=== PATIENT | male | born 1990 | race Caucasian/White ===

== ENCOUNTER 2022-12-06 11:20 | Day surgery (SDC) | payer OTHER ==
[~2022-12-06] VITALS: Ht 180.3 cm; Wt 176.9 kg
[2022-12-06] MEDS ORDERED: diphenhydrAMINE 50 MG/ML VIAL ONE (12:48)
[2022-12-06] MEDS ORDERED: fentaNYL citrate 0.05 MG/ML VIAL ONE (12:49)
[2022-12-06] MEDS ORDERED: MIDAZOLAM 2 MG/2 ML VIAL ONE (12:49)
[2022-12-06] MEDS ORDERED: diphenhydrAMINE 50 MG/ML VIAL IVP ONE (14:25)
[2022-12-06] MEDS ORDERED: fentaNYL citrate 0.05 MG/ML VIAL IVP ONE (14:25)
[2022-12-06] MEDS ORDERED: MIDAZOLAM 2 MG/2 ML VIAL IVP ONE (14:25)
== END 2022-12-06 13:45 | disposition home or self-care (01) ==
LOC: MDS 11:20 → MMU 11:25 → MDS 13:45
PROVIDERS: ATTEND Internal Medicine Gastroenterology
DX: K74.60 Unspecified cirrhosis of liver (principal); I85.10 Secondary esophageal varices without bleeding; I10 Essential (primary) hypertension; E78.5 Hyperlipidemia, unspecified; E66.01 Morbid (severe) obesity due to excess calories; F41.9 Anxiety disorder, unspecified; K29.70 Gastritis, unspecified, without bleeding; Z79.899 Other long term (current) drug therapy
CPT/HCPCS: 43239; J1200; J2250; J3010

== ENCOUNTER 2023-02-14 11:06 | Day surgery (SDC) | payer OTHER ==
[~2023-02-14] VITALS: Ht 180.3 cm; Wt 179.2 kg
[2023-02-14] MEDS ORDERED: PROPOFOL 200 MG/20 ML VIAL IV ONE (12:15)
[2023-02-14] MEDS ORDERED: PROPOFOL 1000 MG/100 ML PREMIX 100 ML IV ONE (12:54)
== END 2023-02-14 14:12 | disposition home or self-care (01) ==
LOC: MOR 11:06 → MMU 11:07 → MOR 14:12
PROVIDERS: ATTEND Internal Medicine Gastroenterology
DX: K74.60 Unspecified cirrhosis of liver (principal); I85.10 Secondary esophageal varices without bleeding; I10 Essential (primary) hypertension; E66.01 Morbid (severe) obesity due to excess calories; Z68.43 Body mass index [BMI] 50.0-59.9, adult; Z79.899 Other long term (current) drug therapy
CPT/HCPCS: 43244; J2704

== ENCOUNTER 2023-03-28 10:13 | Day surgery (SDC) | payer OTHER ==
[~2023-03-28] VITALS: Ht 180.3 cm; Wt 179.2 kg
[2023-03-28 11:10] LABS: BASOPHILS % (AUTO) 0.9 % (0.0-2.0); EOSINOPHILS # (AUTO) 0.2 K/uL (0-0.4); EOSINOPHILS % (AUTO) 4.8 % (0.0-4.0); HEMATOCRIT 29.7 % (36-52); HEMOGLOBIN 10.5 g/dL (12.0-18.0); LYMPHOCYTES # (AUTO) 1.1 K/uL (2.0-11.5); MEAN CORPUSCULAR HEMOGLOBIN 34 pg (27-31); MEAN CORPUSCULAR HGB CONC 35 g/dL (33-37); MEAN CORPUSCULAR VOLUME 95.1 fL (80-94); MONOCYTES # (AUTO) 0.2 K/uL (0.8-1.0); MONOCYTES % (AUTO) 5.4 % (1.7-9.3); NEUTROPHILS # (AUTO) 2.7 K/uL (1.8-7.7); NEUTROPHILS % (AUTO) 62.9 % (42.2-75.2); PLATELET COUNT (AUTO) 51 K/uL (140-450); RED BLOOD CELL COUNT(AUTO) 3.12 MIL/uL (4.20-6.10); RED CELL DISTRIBUTION WIDTH 16.2 % (11.6-13.7); WHITE BLOOD COUNT (AUTO) 4.3 K/uL (4.8-10.8)
[2023-03-28 11:37] LABS: ALBUMIN 2.3 g/dL (3.4-5.0); ANION GAP 11.7 (8-16); CALCIUM 8.2 mg/dL (8.5-10.1); CARBON DIOXIDE 27.9 mmol/L (21-32); CREATININE 1.4 mg/dL (0.6-1.3); POTASSIUM 3.6 mmol/L (3.5-5.1); TOTAL BILIRUBIN 7.1 mg/dL (0.0-1.0); TOTAL PROTEIN, SERUM 6.7 g/dL (6.4-8.2)
[2023-03-28] MEDS ORDERED: PROPOFOL 1000 MG/100 ML PREMIX 100 ML IV ONE (11:56)
[2023-03-28] MEDS ORDERED: PROPOFOL 200 MG/20 ML VIAL IV ONE ×3 (12:04)
[2023-03-28] MEDS ORDERED: LABETALOL 20 MG/4 ML VIAL IVP PRN (12:13)
[2023-03-28] MEDS ORDERED: hydrALAZINE 20 MG/ML VIAL IVP PRN (12:13)
[2023-03-28] MEDS ORDERED: LACTATED RINGERS 1,000 ML IV SCH (12:15)
== END 2023-03-28 13:10 | disposition home or self-care (01) ==
LOC: MDS 10:13 → MMU 10:17 → MDS 13:10
PROVIDERS: ATTEND Internal Medicine Gastroenterology
DX: K74.60 Unspecified cirrhosis of liver (principal); I85.10 Secondary esophageal varices without bleeding; I10 Essential (primary) hypertension; E66.01 Morbid (severe) obesity due to excess calories; Z79.899 Other long term (current) drug therapy; Z68.43 Body mass index [BMI] 50.0-59.9, adult
CPT/HCPCS: 36415; 43244; 80053; 85025; J2704

== ENCOUNTER 2023-05-02 09:04 | Day surgery (SDC) | payer OTHER ==
[~2023-05-02] VITALS: Ht 180.3 cm; Wt 179.2 kg
[2023-05-02 09:42] LABS: BASOPHILS % (AUTO) 0.6 % (0.0-2.0); EOSINOPHILS # (AUTO) 0.3 K/uL (0-0.4); EOSINOPHILS % (AUTO) 5.3 % (0.0-4.0); HEMATOCRIT 29.8 % (36-52); HEMOGLOBIN 10.3 g/dL (12.0-18.0); LYMPHOCYTES # (AUTO) 1.3 K/uL (2.0-11.5); MEAN CORPUSCULAR HEMOGLOBIN 34 pg (27-31); MEAN CORPUSCULAR HGB CONC 35 g/dL (33-37); MEAN CORPUSCULAR VOLUME 97.6 fL (80-94); MONOCYTES # (AUTO) 0.3 K/uL (0.8-1.0); MONOCYTES % (AUTO) 5.1 % (1.7-9.3); NEUTROPHILS # (AUTO) 3.3 K/uL (1.8-7.7); PLATELET COUNT (AUTO) 63 K/uL (140-450); RED BLOOD CELL COUNT(AUTO) 3.05 MIL/uL (4.20-6.10); RED CELL DISTRIBUTION WIDTH 16.7 % (11.6-13.7); WHITE BLOOD COUNT (AUTO) 5.2 K/uL (4.8-10.8)
[2023-05-02 10:04] LABS: ALBUMIN 2.4 g/dL (3.4-5.0); ANION GAP 9.4 (8-16); CALCIUM 9.2 mg/dL (8.5-10.1); CARBON DIOXIDE 26.5 mmol/L (21-32); CREATININE 1.2 mg/dL (0.6-1.3); POTASSIUM 3.9 mmol/L (3.5-5.1); TOTAL BILIRUBIN 7.7 mg/dL (0.0-1.0); TOTAL PROTEIN, SERUM 7.2 g/dL (6.4-8.2)
== END 2023-05-02 11:30 | disposition home or self-care (01) ==
LOC: MDS 09:04 → MMU 09:06 → MDS 11:30
PROVIDERS: ATTEND Internal Medicine Gastroenterology
DX: K74.69 Other cirrhosis of liver (principal); I85.10 Secondary esophageal varices without bleeding; E66.01 Morbid (severe) obesity due to excess calories; Z68.43 Body mass index [BMI] 50.0-59.9, adult; Z79.899 Other long term (current) drug therapy
CPT/HCPCS: 36415; 80053; 85025